=== PATIENT | female | born 1955 | race Caucasian/White ===

== ENCOUNTER 2018-05-18 01:25 | Outpatient (CLI) | payer BC, SELFPAY ==
--- NOTE | 2018-05-18 09:28 | DI.MRI_ITS ---
SYMPTOM/DIAGNOSIS: RT SHOULDER PAIN, ? ROTATOR CUFF MRI RIGHT SHOULDER: Comparison is made with plain films dated 03 Jun 2017. Proton density and FS T2 axial and coronal, T1 and FS T2 sagittal sequences were performed. There are mild degenerative changes of the AC joint without definite impingement. There is a full thickness tear of the supraspinatus tendon with retraction to the level of the AC joint. There is mild muscle atrophy, Goutallier classification Grade 1. The infraspinatus and teres minor tendons appear intact. There is some thickening of small amount of fluid in the subscapularis tendon. No evidence of a full thickness tear. There is a small amount of joint fluid as well as a small amount of fluid in the subcoracoid and sub-deltoid bursa. No gross labral defects are seen. There are degenerative changes at the glenoid. A bone island is seen in the acromion. IMPRESSION: Full thickness tear with contraction of the supraspinatus tendon. Subscapularis tendinosis. Degenerative changes of the glenohumeral joint.
== END 2018-05-18 01:45 ==
PROVIDERS: PCP Family Medicine; Visit Provider Student in an Organized Health Care Education/Training Program
DX: M25.511 Pain in right shoulder (principal); M75.81 Other shoulder lesions, right shoulder
CPT/HCPCS: 73221

== ENCOUNTER 2018-10-04 00:33 | Outpatient (CLI) | payer BC, SELFPAY ==
--- NOTE | 2018-10-04 15:42 | DI.MAMMO_ITS ---
SYMPTOMS/DIAGNOSIS: SCREENING, Z12.39 MAMMOGRAMS: Mammograms were interpreted according to the usual protocol including computer analysis with CAD system, tomosynthesis and C view imaging. The breast tissue is heterogeneously radiodense, which lowers the sensitivity of the study. There is no dominant mass. There are no suspicious calcifications and there has been no significant interval change when compared with prior images. SUMMARY: No evidence of malignancy, category 1. Yearly screening mammography is recommended. Breast density category C. MQSA ASSESSMENT OF FINDINGS: Negative. Category 1. Patient will receive a letter notifying them of these results. Bi-RADS category C. The breasts are heterogeneously dense, which may obscure small masses.
== END 2018-10-04 00:53 ==
PROVIDERS: PCP Family Medicine; Visit Provider Nurse Practitioner Family
DX: Z12.31 Encounter for screening mammogram for malignant neoplasm of breast (principal)
CPT/HCPCS: 77063; 77067

== ENCOUNTER 2018-10-06 09:00 | Outpatient (REF) | payer BC, SELFPAY ==
[2018-10-06 21:54] LABS: Anion Gap 10.2 mmol/L (3-11); BUN 18 mg/dL (7-18); CO2 26.8 mmol/L (21.0-32.0); CREATININE 0.99 mg/dL (0.55-1.02); Calcium 8.9 mg/dL (8.5-10.1); Calculated LDL 118; Chloride 108 mmol/L (98-107); Cholesterol 189 mg/dL (50-200); Estimated GFR 56.65 (mL/min/1.73m2); Glucose 105 mg/dL (70-100); HDL Cholesterol 58 mg/dL (40-60); Potassium 4.3 mmol/L (3.5-5.1); Sodium 145 mmol/L (136-145); TSH 1.03 uIU/mL (0.358-3.74); Triglyceride 67 mg/dL (30-150)
== END 2018-10-06 09:20 ==
LOC: NCHCN 09:00
PROVIDERS: PCP Family Medicine; Visit Provider Nurse Practitioner Family
DX: Z00.00 Encounter for general adult medical examination without abnormal findings (principal); F32.9 Major depressive disorder, single episode, unspecified; R03.0 Elevated blood-pressure reading, without diagnosis of hypertension; Z13.220 Encounter for screening for lipoid disorders
CPT/HCPCS: 80048; 80061; 83721; 84443

== ENCOUNTER 2018-10-09 14:53 | Outpatient (REF) | payer BC, SELFPAY ==
--- NOTE | 2018-10-09 14:00 | PAPFT_PTH ---
PATIENT: Kizzy Nation LOC: [facility] U#:[id number] AGE/SX: 63/F ROOM: RE10/09/[address]: Karime Stern MD : 1955 BED: DIS: 10/09/2018 SPEC #: [id number] RECD: 10/09/18 18:43 STATUS: PADMINI REQ #: [id number] ALYSSA: 10/09/18 14:[address]: Karime Stern DEPT: [facility] Cytology RECD BY: Divine Burgess ENTERED: 10/09/18 18:43 SP TYPE: PAPFT OTHR DR: Donna Bush V Tissues: 1 - CX/ENDOCX FOR PAP SMEARS Procedures: PAP THIN PREP/UVM Screening HPV DNA PROBE Comments: [id number]
== END 2018-10-09 15:13 ==
LOC: LBN 14:53
PROVIDERS: PCP Family Medicine; Visit Provider Obstetrics & Gynecology
DX: Z12.4 Encounter for screening for malignant neoplasm of cervix (principal)
CPT/HCPCS: 88142; 87624

== ENCOUNTER 2019-01-23 16:28 | Outpatient (REF) | payer BC, SELFPAY ==
[2019-01-23 21:15] LABS: Anion Gap 10.7 mmol/L (3-11); BUN 17 mg/dL (7-18); CO2 26.3 mmol/L (21.0-32.0); CREATININE 1.18 mg/dL (0.55-1.02); Calcium 9.3 mg/dL (8.5-10.1); Chloride 107 mmol/L (98-107); Estimated GFR 46.26 (mL/min/1.73m2); Glucose 105 mg/dL (70-100); Potassium 4.2 mmol/L (3.5-5.1); Sodium 144 mmol/L (136-145)
== END 2019-01-23 16:48 ==
LOC: NCHCN 16:28
PROVIDERS: PCP Family Medicine; Visit Provider Nurse Practitioner Family
DX: R03.0 Elevated blood-pressure reading, without diagnosis of hypertension (principal)
CPT/HCPCS: 80048

== ENCOUNTER 2019-02-05 13:50 | Outpatient (REF) | payer BC, SELFPAY ==
--- NOTE | 2019-02-05 13:00 | SKI_PTH ---
PATIENT: Kizzy Nation LOC: [facility] U#:[id number] AGE/SX: 63/F ROOM: RE02/05/[address]: Rosemary Cabral : 1955 BED: DIS: 02/05/2019 SPEC #: [id number] RECD: 02/06/19 12:53 STATUS: PADMINI REQ #: [id number] ALYSSA: 02/05/19 13:[address]: Rosemary Cabral DEPT: Surgical Specimen RECD BY: Divine Burgess ENTERED: 02/06/19 12:53 SP TYPE: FADUMO ADAIR DR: Donna Bush V Tissues: 1 - SKIN BIOPSY(SHAVE/PUNCH) Procedures: SKIN LEVEL 4 Comments: [id number]
== END 2019-02-05 14:10 ==
LOC: NCHCN 13:50
PROVIDERS: PCP Family Medicine; Visit Provider Nurse Practitioner Family
DX: L85.8 Other specified epidermal thickening (principal)
CPT/HCPCS: 88305

== ENCOUNTER 2020-05-11 08:33 | Emergency (ER) | payer MEDICARE, BC, SELFPAY ==
[2020-05-11] VITALS (11 sets, daily range): BP systolic 99–160; BP diastolic 83–105; PULSE 68–98; RESP 8–22; TEMP 36.3; O2SAT 98–99
--- NOTE | 2020-05-11 08:30 | RT.EKG_ITS ---
APPROVED REPORT Exam: Resting ECG Patient Location: E HR:76 bpm ECG Measurements Heart Rate 76 AXIS KS 137 P 50 QRSd 86 QRS -27 QT 367 T 37 QTc 412 Conclusion Sinus rhythm...normal P axis, V-rate 60- 99
--- NOTE | 2020-05-11 08:34 | W.ED.GENAD ---
Discharge Plan Disposition Patient Disposition: HOME Condition: Stable Discharge Details Clinical Impression: Elevated hemoglobin A1c, Heart palpitations, Breath shortness, Cyst Primary Care Provider: Donna Bush V ED Provider: Monae Rodarte Home Meds and New Rx's Prescriptions: Continued bupropion HCl [Wellbutrin XL] 300 mg tablet extended release 24 hr 150 mg PO QAM RF: 0 losartan 25 mg tablet 12.5 mg PO DAILY RF: 0 albuterol sulfate 90 mcg/actuation HFA aerosol inhaler 2 puff INHALATION PRNRF: 0 loratadine 10 mg tablet 10 mg PO PRNRF: 0 Discharge Instructions Instructions: Heart Palpitations (ED), Dyspnea (ED), Diabetes and Nutrition (ED) Additional Instructions: Your imaging today was significant for cyst on the side of your skull as we discussed. The radiologist advised this is benign. The CT scan of your chest did not show any abnormalities. Your labs were significant for an elevated A1c, again this may suggest diabetes. We did discuss starting on medication today but will hold off until you can check more with your primary care. In the meantime, there is attached information on diabetes as well as nutritional changes you may make. Please follow instructions from respiratory therapy for the applications instructor. As we discussed, some of your symptoms may be associated with your use and then withdrawal of marijuana. Please continue cessation of marijuana. Please contact your primary care tomorrow morning to schedule follow-up appointment within the next week. If in the meantime you develop chest pain, shortness of breath breathing, fevers or other new/worsening symptoms please seek care urgently once again. Please keep a journal of your symptoms and what may make these better or worse. Please continue to evaluate potential symptoms of depression or anxiety. Referrals: Donna Bush MD [Primary Care Provider] - Medical Decision Making Patient is a pleasant 55-year-old female presenting today for multitude of complaints. She is primarily concerned about new onset of chest tightness. This began over the past several days. She reports that she has noticed that this has made it more difficult for her to do her house chores such as raking her roof. States that this can radiate under the left breast and towards the left shoulder. She also reports that she has chest tightness. States that this can radiate under the left breast and towards the left shoulder. She reports that she has been having some intermittent shortness of breath which she describes as shallow breathing for the past several months. She had initially attributed this to smoking marijuana. She reports that once he came legal she was smoking much more frequently. States that when she smokes she can also experience some palpitations in her chest. This was a concern for her, she states that she has not smoked for the past week. No recent travel. Patient states that she has Covid antibody as she had illness in May. States that she is been having some low-grade headaches have been bothersome for the past several months. This is new for the patient. Reports that when she has her chest discomfort she can have some nausea but no vomiting. Reports a diminished appetite for the past several months and weight loss. Patient is also concerned that she has had increased thirst and urination. On exam patient appears anxious. She is hypertensive at 160/96 vital signs otherwise within normal limits. She has normal cardiac exam, lungs are clear, abdomen benign. No calf tenderness, 2+ distal pulses in all extremities. EKG was obtained and reviewed by Dr. Haddad. Patient is a normal sinus rhythm with a rate of 76, no acute ischemic changes noted. Family history is pertinent for sister with Graves' disease, brother with Rubin's. No cardiac disease in her family. Differentialquite large. I have considered undiagnosed diabetes. Will obtain A1c. She did have her glucose checked a few days ago which was in 1 await at an urgent care center. Will check TSH. Consider potential pulmonary embolism but she does not have much of risk factors. Will screen the disease dimer. Also considered angina. Will obtain. Is normal, patient may benefit from outpatient stress test and possibly a Holter monitor. Also consider potential cancerous etiology. With the onset of headache, weight loss she denies discussed imaging of her head and will obtain a CT of her head. X-ray reviewed by radiologist: FINDINGS: Lungs: Nodular opacity versus nipple shadow over the right mid to lower lung field. No consolidation. Pleural space: Unremarkable. No pleural effusion. No pneumothorax. Heart/Mediastinum: Unremarkable. No cardiomegaly. Bones/joints: Unremarkable. IMPRESSION: Nodular opacity versus nipple shadow over the right mid to lower lung field. Recommend repeat imaging with nipple markers versus clinical correlation. Labs reviewed. No leukocytosis. Stable H&H. D-dimer is elevated 730 which is above the age-adjusted. Plan for CT for PE protocol. Coags normal. Chemistry significant for creatinine of 1.09. This is baseline for patient. Elevated 128. A1c 6.1. Troponin less than 0.05. TSH within normal limits. Discussed these findings with the patient. She is now going for her CT for PE protocol as well as a head CT. Contacted by the radiologist regarding the patient's head CT. He reports that he has been noting the largest arachnoid granulation arachnoid cyst that he is ever seen. He advised that this is nonconcerning. He did not recommend any follow-up FINDINGS: Pulmonary arteries: Normal. No pulmonary emboli. Aorta: Unremarkable. No aortic aneurysm. No aortic dissection. Lungs: Unremarkable. No consolidation. No masses. Pleural space: Unremarkable. No pneumothorax. No pleural effusion. Heart: Unremarkable. No cardiomegaly. No pericardial effusion. Lymph nodes: Unremarkable. No enlarged lymph nodes. Liver: Partially visualized liver calcifications, likely benign. There is a diffuse decrease in hepatic parenchymal density, consistent with fatty infiltration. Bones/joints: Unremarkable. No acute fracture. Soft tissues: Unremarkable. IMPRESSION: No pulmonary emboli. No acute thoracic findings. Hepatic steatosis. FINDINGS: Brain: No hemorrhage. Basal ganglia cacifications. Is rim No mass effect. Cerebral ventricles: No ventriculomegaly. Bones/joints: Large 3 cm right parietal convexity lobulated calvarial lucency which appears to have a density of CSF and with benign well-defined geographic margins. No acute fracture. Paranasal sinuses: Mucous retention cyst versus polyp of the right maxillary sinus. Remaining paranasal sinuses are clear without air-fluid level. Mastoid air cells: Visualized mastoid air cells are well aerated. Soft tissues: Unremarkable. IMPRESSION: 1. Large 3 cm right parietal convexity lobulated calvarial lucency which appears to have a density of CSF and with benign well-defined geographic margins. 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 2. Right maxillary mucous retention cyst versus polyp. I discussed the staging this with the patient. Patient will be fitted with a Holter monitor to continue to evaluate for her intermittent palpitations. Encouraged that she follow-up with her primary care this week for reevaluation. Advised that she may have need outpatient stress testing but this will need to occur once a Holter monitor has been completed. Patient's heart score is 3 making her low risk. I do feel that she will be followed up as an outpatient. Also discussed her elevated A1c. We did discuss beginning Metformin but she would prefer to hold off and discuss this further with her primary care. If ever she may be more interested in dietary recommendations and attempting to put in this manner. We will give her some education on this we did discuss dietary changes she can make in the interim. Patient I also had a lengthy conversation regarding her daily marijuana use. She was having palpitations often associated with use of marijuana. She is also having increased shortness of breath with this. For the symptoms may have been likely marijuana but she also consider demonstrating some withdrawal symptoms as well. She will continue along with her marijuana cessation. She will journal her symptoms but she may discuss this further with the primary care as well as for comparison get Holter monitor. She will contact her primary care office tomorrow for a follow-up appointment. Return precautions were discussed. All the questions and concerns were addressed and she is fine. HPI General Mode of arrival: ambulatory. Date/Time Provider Initiated Documentation: 05/11/20 08:33. Limitations to Documentation: no limitations. Information obtained by: patient and RN notes reviewed. History of Present Illness 65 year old F presents to the emergency department with the chief complaint of chest tightness, described as mild, with intensity rated at 2. Quality is described as other (tightness), and is localized to the chest. Patient extremity (left arm). Patient started experiencing this month(s) (symptoms started at different times) and it has been intermittent. No relieving factors improve symptom(s), Movement worsens symptoms and Other factors that worsen symptoms (smoking marijuana) . Patient notes chest pain, nausea/vomiting (nausea, no vomiting) and shortness of breath (shallow breathing); denies cough, diaphoresis, fever/chills, headaches, loss of appetite and syncope. Patient did receive the following treatments prior to arrival, none Related Data Home Medications Medication Instructions Recorded Confirmed bupropion HCl 300 mg 24 hr tablet, 150 mg PO QAM 10/09/18 05/11/20 extended release albuterol sulfate 2 puff INHALATION PRN 05/11/20 loratadine 10 mg PO PRN 05/11/20 losartan 12.5 mg PO DAILY 05/11/20 05/11/20 Allergies Allergy/AdvReac Type Severity Reaction Status Date / Time gabapentin Allergy difficulty Verified 05/11/20 08:46 breathing, edema cats Allergy asthma Uncoded 05/11/20 08:46 Review of Systems Constitutional Constitutional: Reports as per HPI, Denies chills, Denies fever(s), Denies headache(s), Denies lethargy and Denies poor appetite Eyes Eyes: Denies change in vision ENT Ears, Nose, Mouth, and Throat: Denies dizziness and Denies headache(s) Cardiovascular Cardiovascular: Reports as per HPI, Reports dyspnea and Reports dyspnea on exertion Respiratory Respiratory: Reports as per HPI, Denies chest congestion, Denies cough, Denies pain on inspiration, Denies pain with cough, Reports dyspnea, Reports dyspnea on exertion and Denies wheezing Gastrointestinal Gastrointestinal: Reports as per HPI, Denies abdominal pain, Denies diarrhea, Reports nausea and Denies vomiting Musculoskeletal Musculoskeletal: Reports as per HPI and Denies back pain Integumentary/Breasts Skin/Breast: Reports as per HPI and Denies rash Neurologic Neurologic: Reports as per HPI, Denies dizziness and Denies headache(s) Allergic/Immunologic Allergic/Immunologic: Denies wheezing PFSH Medical History Asthma was related to ? enviromental issues with mold. Has rescue inhaler but rarely ever uses Depression Good hypertension control Surgical History History of loop electrosurgical excision procedure (LEEP) Family History Other Diabetes Social History Smoking/Tobacco Use Status: Never Smoking risk assessment performed?: Yes Drug use: Daily Substance use type: marijuana Do you feel safe at home: Yes Do you feel safe in your relationship?: Yes Female Reproductive History Menstrual Menopause type: natural Exam Const General: cooperative, healthy appearing, comfortable, no acute distress and well developed Nutritional Appearance: well nourished and overweight Orientation: alert, awake and oriented x3 HENMT Head: normal to inspection Ears: hearing grossly normal bilaterally Mouth: moist mucous membranes Chest Chest: normal inspection of the chest, normal palpation of entire chest wall and no crepitus Resp Effort & Inspection: normal respiratory effort, able to speak in complete sentences and no respiratory distress Auscultation: clear to auscultation bilaterally, no rales, no rhonchi and no wheezes Cardio Rate: regular rate Rhythm: regular rhythm Heart Sounds: S1 normal and S2 normal GI Inspection: normal to inspection, no edema and non-distended Palpation: soft, no hepatosplenomegaly, not firm, no guarding, not rigid and nontender Auscultation: normal bowel sounds Back/Spine/Pelvis Back: no CVA tenderness Thoracic/Lumbar Spine: thoracic and lumbar spine normal to inspection Skin General skin exam: no rashes or lesions noted Trauma: no lacerations or abrasions Neuro General: patient alert, patient awake and patient oriented x3 Cognition: normal cognition Speech: speech normal Gait: normal gait Extrem General: normal to inspection, capillary refill normal, no pedal edema, no calf tenderness and normal gait Psych Appearance: grossly normal and well kempt Mental Status: mental status grossly normal Speech and Movement: speech and movement normal
--- NOTE | 2020-05-11 08:45 | DI.RAD_ITS ---
EXAM: XR CHEST 2V PA LATERAL CLINICAL HISTORY: chest tightness and shallow breathing. TECHNIQUE: 2D digital imaging was performed. COMPARISON: CR RIGHT SHOULDER COMPLETE from 06/03/2017 FINDINGS: Heart size is normal. The mediastinum is not widened. Lungs are clear. No infiltrates nor pleural effusions. IMPRESSION: No acute pulmonary findings. DATA REPOSITORY: RADIATION DOSE DELIVERED:
[2020-05-11 08:56] LABS: Abs Immature Grans 0.01 10^3/uL (0.0-0.06); Absolute Basophil Count 0.06 10^3/uL (0.0-0.2); Absolute Eosinophil Count 0.06 10^3/uL (0.0-0.7); Absolute Lymphocyte Count 2.37 10^3/uL (1.2-3.4); Absolute Monocyte Count 0.52 10^3/uL (0.1-0.8); Basophils % 0.7; Eosinophils % 0.7; HCT 42.7 % (36.0-46.0); HGB 13.7 g/dL (11.2-15.7); Immature Grans % 0.1; Lymphocytes % 27.5; MCH 26.7 pg (27.0-33.0); MCHC 32.1 % (32.0-36.0); MCV 83.2 fL (80-95); MPV 11.1 fL (8.0-11.0); Nucleated RBC 0 %; Platelet Count 292 10^3/uL (130-400); RBC 5.13 10^6/uL (3.93-5.22); RDW 14.7 % (11.7-14.6); RDW-SD 44.7 fL; WBC 8.62 10^3/uL (4.4-10.8)
[2020-05-11] MEDS: Aspirin 81 MG CHEW 324 MG CH (08:56)
[2020-05-11] MEDS: Normal Saline Flush 10 ML SYR IVP ×2 (08:56→10:00)
[2020-05-11 09:09] LABS: PTT Activated 24.2 sec (21.0-27.5); Prothrombin Time 10.1 sec (9.3-11.0)
[2020-05-11 09:16] LABS: ALT 22 U/L (14-59); AST 12 U/L (15-37); Alkaline Phosphatase 63 U/L (46-116); Anion Gap 9.9 mmol/L (3-11); BUN 10 mg/dL (7-18); Bilirubin, Total 0.5 mg/dL (0.2-1.0); CO2 27.1 mmol/L (21.0-32.0); CREATININE 1.09 mg/dL (0.55-1.02); Calcium 9.3 mg/dL (8.5-10.1); Chloride 103 mmol/L (98-107); Estimated GFR 50.38 (mL/min/1.73m2); Glucose 128 mg/dL (74-106); Hemoglobin A1C 6.1 % (<5.7); Magnesium 1.9 mg/dL (1.8-2.4); Potassium 3.5 mmol/L (3.5-5.1); Sodium 140 mmol/L (136-145); Total Protein 8.1 g/dL (6.4-8.2); Troponin I < 0.05 ng/mL (<0.06)
--- NOTE | 2020-05-11 09:18 | DI.VRAD_ITS ---
PROCEDURE INFORMATION: Exam: XR Chest, 2 Views Exam date and time: 05/11/2020 8:49 AM Age: 65 years old Clinical indication: Chest pain; Additional info: PT feels like heart is vibrating TECHNIQUE: Imaging protocol: XR of the chest Views: 2 views. COMPARISON: No relevant prior studies available. FINDINGS: Lungs: Nodular opacity versus nipple shadow over the right mid to lower lung field. No consolidation. Pleural space: Unremarkable. No pleural effusion. No pneumothorax. Heart/Mediastinum: Unremarkable. No cardiomegaly. Bones/joints: Unremarkable. IMPRESSION: Nodular opacity versus nipple shadow over the right mid to lower lung field. Recommend repeat imaging with nipple markers versus clinical correlation. Dictated and Authenticated by: Negro Hernández MD. Ordering:MARYCRUZ Licona MD
[2020-05-11 09:28] LABS: D-Dimer 730 ng/mlFEU (<500)
--- NOTE | 2020-05-11 09:30 | DI.CT_ITS ---
EXAM: CT HEAD WO CLINICAL HISTORY: CARVER, weight loss. TECHNIQUE: Imaging Protocol: Axial computed tomography images with coronal and sagittal reformatted images were created and reviewed COMPARISON: No exams were available for comparison FINDINGS: There is a large lobulated skull lucency in the right parietal region which measures 3.5 centimetres AP by 1.5 centimetres wide and which is associated with dehiscence of both the inner and outer table s which exhibits CSF density. There is no evidence of intracranial hemorrhage, mass effect, or shift of midline structures. There are no extra-axial fluid collections. The ventricles are not enlarged or shifted and there is no blo od within the ventricular system nor within the basal cisterns. Symmetrical calcification in both basal ganglia is noted. IMPRESSION: There is a large 3.5 x 1.5 cm parietal convexity calvarial lesion which exhibits CSF density exhibits well-defined geographic margins but does exhibit dehiscence of the inner and outer tables of the sku ll. 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 Cannot completely excl ude bone malignancy and correlation with past medical history is recommended. No intra-axial brain findings and no significant extra-axial findings in the region of this right par ietal bone lesion. Mild right-sided sinus findings as described above. RADIATION DOSE DELIVERED: 691.62mGy.cm Total DLP DATA REPOSITORY: All CT scans at this facility are submitted to the National Radiology Data Registry (NRDR) Dose Index Registry (DIR) with the [employer] (A[employer]). RADIATION OPTIMIZATION: All CT scans at this facility use at least one of these dose optimization te chniques: automated exposure control; mA and/or kV adjustment per patient size (includes targeted exa ms where dose is matched to clinical indication); or iterative reconstruction.
--- NOTE | 2020-05-11 09:38 | DI.CT_ITS ---
EXAM: CT CHEST PE CTA CLINICAL HISTORY: SOB, chest tightness and +dimer. TECHNIQUE: Imaging Protocol: CT angiography of the chest was performed using pulmonary embolus kenrick col. Multi planar reconstructions were performed. CONTRAST MATERIAL: Intravenous: Omnipaque 350 Contrast volume: 100 cc COMPARISON: CR,XR XR CHEST 2V PA LATERAL from 05/11/2020 FINDINGS: CHEST: PULMONARY ARTERIES: There are no intraluminal filling defects to suggest acute pulmonary emboli. LUNGS: There are no infiltrates nor evidence of pulmonary infarction.. There are no pleural effusions . MEDIASTINUM: There is no hilar nor mediastinal adenopathy. Visualized thyroid unremarkable. CARDIAC: Heart size is normal. There is no pericardial effusion.Caliber of the thoracic aorta is wit hin normal limits. There is no evidence of shift of the interventricular septum. PARTIALLY VISUALIZED UPPERMOST ABDOMEN: Hepatic steatosis. Also benign-appearing calcifications in t he dome of the liver. OSSEOUS: No significant osseous lesions.. IMPRESSION: 1. No evidence of acute pulmonary emboli. No evidence of pulmonary infarction.No pleural effusions. 2. Hepatic steatosis incidentally noted. Also calcifications within the upper right hepatic lobe. 3. RADIATION DOSE DELIVERED: LINK-TO-SR Total DLP DATA REPOSITORY: All CT scans at this facility are submitted to the National Radiology Data Registry (NRDR) Dose Index Registry (DIR) with the [employer] (ACR). RADIATION OPTIMIZATION: All CT scans at this facility use at least one of these dose optimization te chniques: automated exposure control; mA and/or kV adjustment per patient size (includes targeted exa ms where dose is matched to clinical indication); or iterative reconstruction.
[2020-05-11] MEDS: Omnipaque 350 MG/ML 100 ML BTL IV (09:58)
[2020-05-11] MEDS: Normal Saline - Diluent 50 ML VIAL IV (10:00)
--- NOTE | 2020-05-11 10:32 | DI.VRAD_ITS ---
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 Findings were discussed with NIKOLAI MONTANO at 05/11/2020 10:36 AM EST. Initial report created on 05/11/2020 10:32:01 AM EST: PROCEDURE INFORMATION: Exam: CT Head Without Contrast Exam date and time: 05/11/2020 9:39 AM Age: 65 years old Clinical indication: Dizziness TECHNIQUE: Imaging protocol: Computed tomography of the head without contrast. COMPARISON: No relevant prior studies available. FINDINGS: Brain: No hemorrhage. Basal ganglia cacifications. Is rim No mass effect. Cerebral ventricles: No ventriculomegaly. Bones/joints: Large 3 cm right parietal convexity lobulated calvarial lucency which appears to have a density of CSF and with benign well-defined geographic margins. No acute fracture. Paranasal sinuses: Mucous retention cyst versus polyp of the right maxillary sinus. Remaining paranasal sinuses are clear without air-fluid level. Mastoid air cells: Visualized mastoid air cells are well aerated. Soft tissues: Unremarkable. IMPRESSION: 1. Large 3 cm right parietal convexity lobulated calvarial lucency which appears to have a density of CSF and with benign well-defined geographic margins. 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 2. Right maxillary mucous retention cyst versus polyp. Dictated and Authenticated by: Negro Hernández MD. Ordering:MARYCRUZ Licona MD
--- NOTE | 2020-05-11 11:06 | DI.VRAD_ITS ---
PROCEDURE INFORMATION: Exam: CT Angiography Chest With Contrast Exam date and time: 05/11/2020 10:20 AM Age: 65 years old Clinical indication: Pain; Other: SOB, chest tightness and +dimer TECHNIQUE: Imaging protocol: Computed tomographic angiography of the chest with intravenous contrast. 3D rendering (Not supervised by radiologist): MIP and/or 3D reconstructed images were created by the technologist. Radiation optimization: All CT scans at this facility use at least one of these dose optimization techniques: automated exposure control; mA and/or kV adjustment per patient size (includes targeted exams where dose is matched to clinical indication); or iterative reconstruction. Contrast material: OMNIPAUE 350; Contrast volume: 100 ml; Contrast route: INTRAVENOUS (IV); COMPARISON: CR XR CHEST 2V PA LATERAL 05/11/2020 9:07 AM FINDINGS: Pulmonary arteries: Normal. No pulmonary emboli. Aorta: Unremarkable. No aortic aneurysm. No aortic dissection. Lungs: Unremarkable. No consolidation. No masses. Pleural space: Unremarkable. No pneumothorax. No pleural effusion. Heart: Unremarkable. No cardiomegaly. No pericardial effusion. Lymph nodes: Unremarkable. No enlarged lymph nodes. Liver: Partially visualized liver calcifications, likely benign. There is a diffuse decrease in hepatic parenchymal density, consistent with fatty infiltration. Bones/joints: Unremarkable. No acute fracture. Soft tissues: Unremarkable. IMPRESSION: No pulmonary emboli. No acute thoracic findings. Hepatic steatosis. Dictated and Authenticated by: Negro Hernández MD. Ordering:MARYCRUZ Licona MD
[2020-05-11 12:00] LABS: Troponin I < 0.05 ng/mL (<0.06)
== END 2020-05-11 13:13 | disposition home or self-care (01) ==
PROVIDERS: Emergency Provider Physician Assistant; PCP Family Medicine
DX: R00.2 Palpitations (principal); R06.02 Shortness of breath; R73.09 Other abnormal glucose; R93.0 Abnormal findings on diagnostic imaging of skull and head, not elsewhere classified; F12.10 Cannabis abuse, uncomplicated
CPT/HCPCS: 36415; 71275; 80053; 93005; 99285; 70450; 71046; 83036; 83735; 84443; 84484; 85025; 85379; 85610; 85730; 93010; 93225; J3490

== ENCOUNTER 2020-05-11 12:02 | Outpatient (RCR) | payer MEDICARE, BC, SELFPAY ==
--- NOTE | 2020-05-11 12:30 | HOLTER_ITS ---
APPROVED REPORT Exam Type: HOLTER MONITOR APPLICATION Reason for Test: Palpitations R00.2 Patient Location: O Conclusion This is a 48-hour Holter monitor ordered for indication of palpitations. Patient was in normal sinus rhythm with majority the recording with an average heart rate of 75 bpm. There was one episode of supraventricular tachycardia which lasted 3 beats. There were 3 total PACs. There were no episodes of ventricular tachycardia and no PVCs. There were no episodes of atrial fibrillation, no pauses greater than 3 seconds and no evidence of hi gh degree heart block. There were 13 patient recorded events all of which were associated with sinus rhythm.
== END 2020-05-18 23:59 | disposition home or self-care (01) ==
LOC: RT 12:02
PROVIDERS: PCP Family Medicine; Visit Provider Physician Assistant
DX: R00.2 Palpitations (principal); I47.1 Supraventricular tachycardia; I49.1 Atrial premature depolarization
CPT/HCPCS: 93227; 93225; 93226

== ENCOUNTER 2021-05-04 16:13 | Outpatient (REF) | payer MEDICARE, SELFPAY ==
[2021-05-04 19:23] LABS: T4 12.9 ug/mL (4.7-13.3); TSH 0.64 uIU/mL (0.36-3.74)
[2021-05-05 17:01] LABS: T3, Total 144 ng/dL (97-169)
== END 2021-05-04 16:14 | disposition home or self-care (01) ==
LOC: NCHCN 16:13
PROVIDERS: PCP Family Medicine; Visit Provider Nurse Practitioner Family
DX: R00.2 Palpitations (principal); F41.9 Anxiety disorder, unspecified
CPT/HCPCS: 84436; 84443; 84480

== ENCOUNTER 2021-08-25 20:18 | Outpatient (REF) | payer MEDICARE, SELFPAY ==
[2021-08-25 19:44] LABS: Hemoglobin A1C 6.4 % (<5.7)
[2021-08-25 20:05] LABS: ALT 28 U/L (14-59); AST 19 U/L (15-37); Albumin 4.1 g/dL (3.4-5.0); Alkaline Phosphatase 62 U/L (46-116); Anion Gap 8.3 mmol/L (3-11); BUN 13 mg/dL (7-18); Bilirubin, Total 0.6 mg/dL (0.2-1.0); CO2 27.7 mmol/L (21.0-32.0); CREATININE 0.8 mg/dL (0.55-1.02); Calcium 9.1 mg/dL (8.5-10.1); Chloride 105 mmol/L (98-107); Glucose 113 mg/dL (74-106); Potassium 4.1 mmol/L (3.5-5.1); Sodium 141 mmol/L (136-145); Total Protein 7.3 g/dL (6.4-8.2)
== END 2021-08-25 20:19 | disposition home or self-care (01) ==
LOC: NCHCN 20:18
PROVIDERS: PCP Family Medicine; Visit Provider Family Medicine
DX: I10 Essential (primary) hypertension (principal); R73.09 Other abnormal glucose
CPT/HCPCS: 80053; 83036

== ENCOUNTER → 2021-09-01 01:15 | Outpatient (CLI) | payer MEDICARE, SELFPAY ==
--- NOTE | 2021-09-01 | DI.MAMMO_ITS ---
Exam(s) MAMMO SCREENING EXAM: MAMMO SCREENING CLINICAL HISTORY: SCREENING, Z12.31. TECHNIQUE: Bilateral full field digital CC and MLO mammographic images were obtained with 3D tomosyn thesis and utilizing computer aided detection (CAD). COMPARISON: Prior mammograms were reviewed, the most recent being September 2018. FINDINGS: There has been no significant change in the appearance and distribution of the fibroglandular tissue A few small benign-appearing nodular densities in the right breast are unchanged. Some asymmetric tissue medial of center in the left breast is unchanged. There are no new spiculated masses nor malignant-appearing microcalcification groups in either breast . There is no significant architectural distortion nor skin thickening-retraction. IMPRESSION: No radiographic evidence of malignancy. BI-RADS Category 1 - Negative Breast Density - Category B - Scattered areas of fibroglandular density Breast density Category C or D implies that the patient has dense breast tissue. Dense breast tissue can make it harder to find cancer on a mammogram. Dense breast tissue is also associated with an incr eased risk of breast cancer. This information about the result of the mammogram report was provided to the patient to raise their awareness. Use this report when you speak with the patient about their risks for breast cancer, which includes their family history. At that time, you may recommend additional screening tests (Ultrasoun d or MRI) as these tests may add significant information. A negative radiographic report should not delay biopsy if a dominant or clinically suspicious mass is present. Up to ten percent of cancers are not identified on mammography. A negative report may reinforce clinical impression. Adenosis and dense breasts may obscure an underlying neoplasm. False positive reports average 6 to 10%. Patient will receive a letter notifying them of these results.
== END ==
PROVIDERS: PCP Family Medicine; Visit Provider Family Medicine
DX: Z12.31 Encounter for screening mammogram for malignant neoplasm of breast (principal)
CPT/HCPCS: 77063; 77067

== ENCOUNTER → 2021-10-02 00:38 | Outpatient (CLI) | payer MEDICARE, SELFPAY ==
--- NOTE | 2021-10-02 | DI.DEXA_ITS ---
Exam(s) XR DEXA BONE DENSITY W/WO RITESH EXAM: XR DEXA BONE DENSITY W/WO RITESH CLINICAL HISTORY: MENOPAUSAL Z78.0 TECHNIQUE: COMPARISON: No exams were available for comparison FINDINGS: DEXA scan was performed according to the usual protocol. Please see the accompanying data sheets. L eft hip scanning shows T-score -0.1 with left femoral neck T-score -0.9. Lumbar spine scanning shows T-score 1.7. Left forearm scanning shows T-score 0. IMPRESSION: Normal bone density according to the WHO criteria. The lateral vertebral scanogram shows no evidence of a vertebral compression fracture. RADIATION DOSE DELIVERED: Total DLP
== END ==
PROVIDERS: PCP Family Medicine; Visit Provider Family Medicine
DX: Z78.0 Asymptomatic menopausal state (principal)
CPT/HCPCS: 77080

== ENCOUNTER 2021-10-09 17:07 | Outpatient (REF) | payer MEDICARE, SELFPAY | END 2021-10-09 17:08 | disposition home or self-care (01) | LOC: NCHCN 17:07 | PROVIDERS: PCP Family Medicine; Visit Provider Family Medicine | DX: R10.30 Lower abdominal pain, unspecified (principal); N89.8 Other specified noninflammatory disorders of vagina; R82.998 Other abnormal findings in urine | CPT/HCPCS: 87086; 87480; 87510; 87660 ==

== ENCOUNTER → 2021-10-15 01:39 | Outpatient (CLI) | payer MEDICARE, SELFPAY ==
--- NOTE | 2021-10-15 | DI.CT_ITS ---
Exam(s) CT HEAD WO EXAM: CT HEAD WO CLINICAL HISTORY: arachnoid cyst, g93.0, sinus disorder, j34.9. TECHNIQUE: Imaging Protocol: Axial computed tomography images with coronal and sagittal reformatted images were created and reviewed COMPARISON: CT CT HEAD WO from 05/11/2020 FINDINGS: Ventricles and Extra axial spaces: Normal in size and morphology for the patient's age. Hemorrhage: None. Cerebral parenchyma: Normal. No evidence of an acute territorial infarct. Midline shift: None. Brainstem/Cerebellum: Normal. Calvarium: Stable well-circumscribed right parietal calvarial lesion. No other calvarial lesion is i dentified. Visualized Paranasal sinuses/Mastoids: Clear. Soft Tissues: Unremarkable. IMPRESSION: 1. No acute intracranial process. 2. Stable right parietal calvarial lesion. A follow-up examination in 6 months should be considered to document stability. RADIATION DOSE DELIVERED: 688.04mGy.cm Total DLP DATA REPOSITORY: All CT scans at this facility are submitted to the National Radiology Data Registry (NRDR) Dose Index Registry (DIR) with the [employer] (ACR). RADIATION OPTIMIZATION: All CT scans at this facility use at least one of these dose optimization te chniques: automated exposure control; mA and/or kV adjustment per patient size (includes targeted exa ms where dose is matched to clinical indication); or iterative reconstruction.
== END ==
PROVIDERS: PCP Family Medicine; Visit Provider Family Medicine
DX: G93.0 Cerebral cysts (principal); J34.9 Unspecified disorder of nose and nasal sinuses
CPT/HCPCS: 70450

== ENCOUNTER 2021-12-25 20:09 | Outpatient (REF) | payer MEDICARE, SELFPAY ==
[2021-12-25 17:26] LABS: Bacteria Negative HPF (Negative); Casts Negative LPF (Negative); Crystals Negative HPF (Negative); Epithelial Cells Negative HPF (Negative); Mucus Negative (Negative); Other Cells Negative (Negative); WBC Negative HPF (0-5)
[2021-12-25 22:08] LABS: C & S Indicated? C&S Done As Ordered
== END 2021-12-25 20:10 | disposition home or self-care (01) ==
LOC: NCHCN 20:09
PROVIDERS: PCP Family Medicine; Visit Provider Family Medicine
DX: R31.9 Hematuria, unspecified (principal)
CPT/HCPCS: 81015; 87086

== ENCOUNTER 2022-08-27 11:00 | Outpatient (REF) | payer MEDICARE, SELFPAY ==
[2022-08-27 14:41] LABS: HCT 43.2 % (36.0-46.0); HGB 13.8 g/dL (11.2-15.7)
[2022-08-27 15:06] LABS: ALT 26 U/L (14-59); AST 19 U/L (15-37); Alkaline Phosphatase 66 U/L (46-116); Anion Gap 9.4 mmol/L (3-11); BUN 15 mg/dL (7-18); Bilirubin, Total 0.4 mg/dL (0.2-1.0); CO2 28.6 mmol/L (21.0-32.0); Calcium 9.4 mg/dL (8.5-10.1); Calculated LDL 119 mg/dL (<100); Chloride 105 mmol/L (98-107); Cholesterol 200 mg/dL (<200); Estimated GFR 61.75 (mL/min/1.73m2); Glucose 111 mg/dL (74-106); HDL Cholesterol 69 mg/dL (40-60); Potassium 4.4 mmol/L (3.5-5.1); Sodium 143 mmol/L (136-145); TSH (W/Ref FT4) 0.88 uIU/mL (0.36-3.74); Total Protein 7.6 g/dL (6.4-8.2); Triglyceride 61 mg/dL (<150)
[2022-08-27 19:32] LABS: Hemoglobin A1C 6.5 % (<5.7)
== END 2022-08-27 11:01 | disposition home or self-care (01) ==
LOC: NCHCN 11:00
PROVIDERS: PCP Family Medicine; Visit Provider Family Medicine
DX: I10 Essential (primary) hypertension (principal); R73.03 Prediabetes; K76.0 Fatty (change of) liver, not elsewhere classified
CPT/HCPCS: 80053; 80061; 83036; 84443; 85014; 85018

== ENCOUNTER → 2023-03-07 02:05 | Outpatient (CLI) | payer MEDICARE, SELFPAY ==
--- NOTE | 2023-03-07 | DI.NM_ITS ---
APPROVED REPORT Exam: Exercise Treadmill Patient Location: Out-Patient Room/Bed: Stress Nurse: Erwin Szymanski RN Ordering Provider:YADIEL SWARTZ, Contact Number: [phone] BMI: 29.04 Baseline Rhythm: Sinus Rhythm Indications: Chest pain/tightness. Medical History Medical History: Asthma, HTN, depression. Cardiac Medications: Losartan, Albuterol. Allergies: gabapentin, cats. Cardiac Risk Factors: HTN Pretest Chest Pain Characteristics: No chest pain Exercise History: Indeterminate Lung Sounds: Clear to auscultation Heart Sounds: Regular Stress Test Details Test: Exercise stress testing was performed using a Amhendra protocol. Rest Isotope: Tc-99m Sestamibi. Dose: 0920 Date: 03/07/2023 Injection Time: 10.0 Stress Isotope: Tc-99m Sestamibi. Dose: 30.0 Date: 03/07/2023 Injection Time: 1115 HR Resting HR Supine: 67 bpm Max Heart Rate (APMHR): 153 bpm Resting HR Standin bpm Target HR (85% APMHR): 130 bpm Max HR Achieved: 133 bpm % of APMHR: 87 Recovery HR: 89 bpm HR response to stress: Normal HR response to stress BP Resting BP Supine: 160/92 mmHg Resting BP Standin/92 mmHg Max BP: 200/72 mmHg Recovery BP: 142/84 mmHg BP response to stress: Normal blood pressure response to stress. ECG Resting ECG: Sinus Rhythm Ectopy: none Stress ECG: Sinus Tachycardia ST Change: No significant ST segment changes noted Arrhythmia: None Recovery ECG: Sinus Rhythm Recovery Arrhythmia: None Comment: Occasional transient decrease in hert rate from 100's to 70's rebounding back to 100's durin g recovery. Clinical Reason for Termination: Fatigue, Target HR Achieved Exercise duration: 7 min8 sec Highest Stage Reached: Stage 2: 2.5 mph at 12% grade. Exercise capacity: 8 METs Angina Score: None Bustamante Treadmill Score: 6.7 Rate Pressure Product: [id number] Stress ECG Conclusion 1. Resting electrocardiogram was within normal limits 2. Patient exercised on the Mahendra protocol and completed a workload of 8 METS 3. Normal heart rate and blood pressure response to exercise. Patient achieved 87% of predicted hear t rate for age 4. There was no electrocardiographic evidence of myocardial ischemia 5. There were no significant dysrhythmias 6. See MPI report Bustamante Treadmill Score is 6.7 which is Low risk. Stress Test Summary STAGE Time (mins) Speed (mph) Grade (%) HR BP SpO2 SYMPTOMS METS Supine 67 160/92 98 Standing 70 142/92 1 3 1.7 10 101 140/80 98 4.5 2 6 2.5 12 126 160/88 98 7 1 min recovery 133 200/72 3 min recovery 89 150/78 97 6 min recovery 83 142/84 MPI Conclusion Myocardial perfusion is normal. There is no ischemia or evidence of prior infarction Ejection fraction is 68% with normal wall motion Radiologist Interpretation Radiologist agrees with Systems Admin's Interpretation. Radiologist Interpretation by: Maryam Teresa MD Interpretation Date/Time: 03/07/2023 15:34:56
== END ==
PROVIDERS: PCP Family Medicine; Visit Provider Family Medicine
DX: R07.9 Chest pain, unspecified (principal)
CPT/HCPCS: 78452; 93016; 93018; 93017

== ENCOUNTER 2023-12-08 12:28 | Outpatient (REF) | payer MEDICARE, SELFPAY ==
[2023-12-08 15:52] LABS: HCT 43.2 % (36.0-46.0); HGB 13.7 g/dL (11.2-15.7); MCH 26.9 pg (27.0-33.0); MCHC 31.7 % (32.0-36.0); MCV 85 fL (80-95); MPV 10.9 fL (8.0-11.0); Platelet Count 272 10^3/uL (130-400); RDW 15.1 % (11.7-14.6); RDW-SD 46.6 fL; WBC 7.48 10^3/uL (4.4-10.8)
[2023-12-08 16:12] LABS: ALT 24 U/L (14-59); AST 18 U/L (15-37); Albumin 4.1 g/dL (3.4-5.0); Alkaline Phosphatase 68 U/L (46-116); Anion Gap 9.6 mmol/L (3-11); BUN 17 mg/dL (7-18); Bilirubin, Total 0.43 mg/dL (0.2-1.0); CO2 27.4 mmol/L (21.0-32.0); CREATININE 0.9 mg/dL (0.55-1.02); Calcium 9.9 mg/dL (8.5-10.1); Chloride 103 mmol/L (98-107); Creatine Kinase 157 U/L (26-192); Estimated GFR 69.64 (mL/min/1.73m2); Glucose 100 mg/dL (74-106); Potassium 4.2 mmol/L (3.5-5.1); Sodium 140 mmol/L (136-145); TSH 0.75 uIU/Ml (0.36-3.74); Total Protein 7.5 g/dL (6.4-8.2)
[2023-12-08 16:13] LABS: C-Reactive Protein < 0.50 mg/dL (<or=0.5)
[2023-12-08 16:16] LABS: Iron 74 ug/dL (50-170)
[2023-12-08 16:19] LABS: Hemoglobin A1C 6.2 % (<5.7)
[2023-12-08 16:59] LABS: Calculated LDL 141 mg/dL (<100); Cholesterol 226 mg/dL (<200); HDL Cholesterol 73 mg/dL (40-60); Triglyceride 63 mg/dL (<150); Vitamin B12 629 pg/mL (193-986)
== END 2023-12-08 12:29 | disposition home or self-care (01) ==
LOC: NCHCN 12:28
PROVIDERS: PCP Family Medicine; Visit Provider Family Medicine
DX: I10 Essential (primary) hypertension (principal); Z00.00 Encounter for general adult medical examination without abnormal findings; R73.03 Prediabetes
CPT/HCPCS: 80053; 80061; 82550; 85027; 82607; 83036; 83540; 84443; 86140

== ENCOUNTER 2023-12-22 02:30 | Outpatient (CLI) | payer MEDICARE, SELFPAY ==
--- NOTE | 2023-12-22 | DI.CT_ITS ---
Exam(s) CT HEAD WO EXAM: CT HEAD WO CLINICAL HISTORY: H/O ARACHNOID CYST, G93.0,F/U. TECHNIQUE: Imaging Protocol: Axial computed tomography images with coronal and sagittal reformatted images were created and reviewed COMPARISON: CT CT HEAD WO from 10/15/2021 FINDINGS: Ventricles and Extra axial spaces: Normal in size and morphology for the patient's age. Hemorrhage: None. Cerebral parenchyma: Normal. Midline shift: None. Brainstem/Cerebellum: Normal. Calvarium: There is again seen a well-circumscribed lucency in the right parietal bone measuring raissa uring 3.3 x 1.7 cm. This is show no significant change compared to the prior examination. Visualized Paranasal sinuses/Mastoids: Clear. Soft Tissues: Unremarkable. IMPRESSION: 1. No acute intracranial process. 2. Stable right parietal calvarial lesion. RADIATION DOSE DELIVERED: 984.89mGy.cm Total DLP DATA REPOSITORY: All CT scans at this facility are submitted to the National Radiology Data Registry (NRDR) Dose Index Registry (DIR) with the [employer] (ACR). RADIATION OPTIMIZATION: All CT scans at this facility use at least one of these dose optimization te chniques: automated exposure control; mA and/or kV adjustment per patient size (includes targeted exa ms where dose is matched to clinical indication); or iterative reconstruction.
== END 2023-12-22 02:50 ==
LOC: DI 02:30
PROVIDERS: PCP Family Medicine; Visit Provider Family Medicine
DX: G93.0 Cerebral cysts (principal)
CPT/HCPCS: 70450

== ENCOUNTER 2024-03-26 01:34 | Outpatient (CLI) | payer MEDICARE, SELFPAY ==
--- NOTE | 2024-03-26 | DI.MAMMO_ITS ---
Exam(s) MAMMO SCREENING EXAM: MAMMO SCREENING CLINICAL HISTORY: SCREENING, Z12.31. TECHNIQUE: Bilateral full field digital CC and MLO mammographic images were obtained with 3D tomosyn thesis and utilizing computer aided detection (CAD). COMPARISON: Prior mammograms were reviewed. FINDINGS: There has been no significant change in the appearance and distribution of the fibroglandular tissue. Asymmetric densities both breasts unchanged prior mammograms There are no new spiculated masses nor malignant appearing microcalcification groups. There is no significant architectural distortion nor skin thickening-retraction. IMPRESSION: No radiographic evidence of malignancy. BI-RADS Category 1 - Negative Breast Density - Category B - Scattered areas of fibroglandular density Breast density Category C or D implies that the patient has dense breast tissue. Dense breast tissue can make it harder to find cancer on a mammogram. Dense breast tissue is also associated with an incr eased risk of breast cancer. This information about the result of the mammogram report was provided to the patient to raise their awareness. Use this report when you speak with the patient about their risks for breast cancer, which includes their family history. At that time, you may recommend additional screening tests (Ultrasoun d or MRI) as these tests may add significant information. A negative radiographic report should not delay biopsy if a dominant or clinically suspicious mass is present. Up to ten percent of cancers are not identified on mammography. A negative report may reinforce clinical impression. Adenosis and dense breasts may obscure an underlying neoplasm. False positive reports average 6 to 10%. Patient will receive a letter notifying them of these results.
== END 2024-03-26 01:54 ==
LOC: DI 01:34
PROVIDERS: PCP Family Medicine; Visit Provider Family Medicine
DX: Z12.31 Encounter for screening mammogram for malignant neoplasm of breast (principal); R92.323 Mammographic fibroglandular density, bilateral breasts
CPT/HCPCS: 77063; 77067

== ENCOUNTER 2024-04-03 13:53 | Outpatient (REF) | payer MEDICARE, SELFPAY ==
[2024-04-03 16:14] LABS: Calculated LDL 137 mg/dL (<100); Cholesterol 230 mg/dL (<200); HDL Cholesterol 82 mg/dL (40-60); Triglyceride 59 mg/dL (<150)
[2024-04-03 17:21] LABS: Hemoglobin A1C 6.1 % (<5.7)
== END 2024-04-03 13:54 | disposition home or self-care (01) ==
LOC: NCHCN 13:53
PROVIDERS: PCP Family Medicine; Visit Provider Family Medicine
DX: R73.03 Prediabetes (principal)
CPT/HCPCS: 80061; 83036

== ENCOUNTER 2024-06-12 16:02 | Outpatient (REF) | payer MEDICARE, SELFPAY ==
[2024-06-12 17:01] LABS: Calculated LDL 110 mg/dL (<100); Cholesterol 214 mg/dL (<200); HDL Cholesterol 83 mg/dL (40-60); Triglyceride 106 mg/dL (<150)
== END 2024-06-12 16:03 | disposition home or self-care (01) ==
LOC: NCHCN 16:02
PROVIDERS: PCP Family Medicine; Visit Provider Family Medicine
DX: Z00.00 Encounter for general adult medical examination without abnormal findings (principal); N41.1 Chronic prostatitis; R73.03 Prediabetes; E66.9 Obesity, unspecified
CPT/HCPCS: 80061

== ENCOUNTER 2025-02-14 16:52 | Outpatient (REF) | payer MEDICARE, BC, SELFPAY ==
[2025-02-14 19:43] LABS: Anion Gap 8.3 mmol/L (3-11); BUN 28 mg/dL (7-18); CO2 29.7 mmol/L (21.0-32.0); Calcium 9.3 mg/dL (8.5-10.1); Chloride 105 mmol/L (98-107); Estimated GFR 54.39 (mL/min/1.73m2); Glucose 94 mg/dL (74-106); Magnesium 2.1 mg/dL (1.8-2.4); Potassium 4.7 mmol/L (3.5-5.1); Sodium 143 mmol/L (136-145)
[2025-02-14 20:11] LABS: Hemoglobin A1C 6.1 % (<5.7)
== END 2025-02-14 16:53 | disposition home or self-care (01) ==
LOC: NCHCN 16:52
PROVIDERS: PCP Family Medicine; Visit Provider Family Medicine
DX: R25.2 Cramp and spasm (principal); R73.03 Prediabetes; I10 Essential (primary) hypertension
CPT/HCPCS: 80048; 83036; 83735